=== PATIENT | female | born 1930 | race Caucasian/White ===

== ENCOUNTER 2018-05-05 13:24 | Inpatient (IN) | payer OTHER, BC, MEDICARE ==
[~2018-05-05] VITALS: Ht 157.5 cm; Wt 66.3 kg
--- NOTE | 2018-05-05 13:53 | ED SYNCOPE COMPLAINT ---
History of Present Illness General Chief Complaint: Syncope and Near-Syncope Stated Complaint: S/P SYNCOPAL EPISODE Source: patient, EMS Exam Limitations: no limitations Allergies Coded Allergies: NSAIDS (Non-Steroidal Anti-Inflamma (BLEEDING 05/05/18) blueberry (TONGUE AND LIP SWELL; ALL BERRIES EXCEPT STRAWBERRY 05/05/18) raspberry (LIP AND TONGUE SWELL; ALL BERRIES EXCEPT STRAWBERRY 05/05/18) Triage Note: PT BIBA S/P SYNCOPAL EPISODE AT [facility] LOC ESTIMATED TO HAVE LASTED LESS THAN A MINUTE. PT HIT BACK OF HER HEAD. ARRIVED WITH C-COLLAR IN PLACE. PT ALSO IN RAPID AFIB ON EMS ARRIVAL. SHE HAS NO HISTORY OF AFIB. NOT ON ANTICOAGULANTS. AFIB ON ARRIVAL HR 110s-120s. DENIES CP OR PALPITATIONS. NO C/O SOB. Triage Nurses Notes Reviewed? yes Timing: recent history Precipitating Factors: none Context: standing HPI: 87YO female with hx of HTN, hyperlipidema presents to ED complaining of syncopal episode while shopping today. Patient states she fell backwards and hit her head. She was unconcious for about 1 minute. PAtient states she has no prodrome symptoms prior to her syncopal episode. She reports decreased appetite and fatigue over the past few days. She has no history of syncope in the past. The patient denies fevers, chills, chest pain, dyspnea, palpatations, abdominal pain. (Ester MACIEL,Mindy Cervantes) Vital Signs & Intake/Output Vital Signs & Intake/Output Vital Signs Date Time Temp Pulse Resp B/P B/P Pulse O2 O2 Flow FiO2 Mean Ox Delivery Rate 05/05 1648 97.8 108 18 160/84 98 Room Air 05/05 1517 98.0 109 18 144/84 95 Room Air 05/05 1336 98.5 126 18 155/93 98 Room Air Reconcile Medications Acetaminophen 500 MG TABLET 2 TAB PO PRN PAIN (Reported) Amlodipine Besylate 10 MG TABLET 1 TAB PO DAILY BP (Reported) Atorvastatin Calcium (Lipitor) 10 MG TABLET 1 TAB PO DAILY CHOLESTEROL ( Reported) Chlorthalidone 25 MG TABLET 1 TAB PO DAILY DIURETIC (Reported) Citalopram Hydrobromide (Celexa) 20 MG TABLET 1 TAB PO DAILY MENTAL HEALTH ( Reported) Gabapentin (Neurontin) 100 MG CAPSULE 2 CAP PO BID NERVE PAIN (Reported) Verapamil HCl 120 MG TABLET 1 TAB PO DAILY HEART/BP (Reported) (Parker CORTES,Jean Claude Resendez) Past History Travel History Traveled to [place] past 21 day No Medical History Any Pertinent Medical History? see below for history Cardiovascular: hypertension, hyperlipidemia Surgical History Surgical History: non-contributory Psychosocial History What is your primary language Guamanian Tobacco Use: Never used Family History Hx Contributory? No (Mindy Jarvis) Review of Systems Review of Systems Constitutional: Reports: no symptoms. EENTM: Reports: no symptoms. Respiratory: Reports: no symptoms. Cardiovascular: Reports: see HPI. GI: Reports: no symptoms. Genitourinary: Reports: no symptoms. Musculoskeletal: Reports: no symptoms. Skin: Reports: no symptoms. Neurological/Psychological: Reports: see HPI. All Other Systems: Reviewed and Negative (Mindy Jarvis) Physical Exam Physical Exam General Appearance: well developed/nourished, no apparent distress, alert, awake Head: atraumatic, normal appearance Eyes: Bilateral: normal appearance, PERRL, EOMI. Ears, Nose, Throat: normal pharynx, hearing grossly normal Neck: normal inspection, supple, full range of motion, no midline tenderness Respiratory: normal breath sounds, chest non-tender, no respiratory distress, lungs clear Cardiovascular: normal peripheral pulses, tachycardia, irregular rhythm Gastrointestinal: normal bowel sounds, soft, non-tender, no organomegaly Back: normal inspection, normal range of motion, no vertebral tenderness Extremities: normal range of motion, [id number] skin abrasion to posterior right forearm Psychiatric: awake, alert, oriented x 3 Cranial Nerves: normal hearing, normal speech, PERRL, CN II-XII intact Coordination/Gait: normal gait Motor/Sensory: no motor/sensory deficits Skin: abrasion as mentioned above Core Measures ACS in differential dx? Yes CVA/TIA Diagnosis: No Sepsis Present: No Sepsis Focused Exam Completed? No (Mindy Jarvis) Progress Differential Diagnosis: AMI, aortic valve, drug induced syncope, orthostatic syncope, other valvular disease, pulmonary embolus, subarachnoid hem., TIA/CVA, ventricular tach/fib, ATIAL FIBRILLATION, DEHYDRATION, CHF Plan of Care: Orders Procedure Date/time Status Heart Healthy Diet 05/06 B Active Patient Data 05/05 1705 Active TROPONIN LEVEL 05/05 1705 Active EKG 05/05 1705 Active ED Holding Orders 05/05 1659 Active Admit to inpatient 05/05 1659 Active Vital Signs 05/05 1659 Active Code Status 05/05 1659 Active Add-on Test (ER Only) 05/05 1542 Active B-TYPE NATRIURETIC PEP (BNP) 05/05 1405 Complete TROPONIN LEVEL 05/05 1349 Complete PARTIAL THROMBOPLASTIN TIME 05/05 1349 Complete PROTHROMBIN TIME 05/05 1349 Complete COMPREHENSIVE METABOLIC PANEL 05/05 1349 Complete CBC WITHOUT DIFFERENTIAL 05/05 1349 Complete Intake & Output 05/05 1341 Active EKG 05/05 1330 Active Current Medications Sig/Miracle Start time Last Medication Dose Stop Time Status Admin Heparin Sodium 25,000 UNIT Q24H 05/05 1715 AC (Porcine) (Heparin) Sodium Chloride 500 ML Sodium Chloride 1,000 ML BOLUS ONE 05/05 1645 AC (Normal Saline 0.9%) 05/05 1744 Sodium Chloride 1,000 ML BOLUS ONE 05/05 1645 AC (Normal Saline 0.9%) 05/05 1844 Laboratory Tests 05/05/18 1710: Troponin I Pending 05/05/18 1405: Anion Gap 12, Estimated GFR 42 L, BUN/Creatinine Ratio 31.7 H, Glucose 109 H, Calcium 9.2, Total Bilirubin 1.1, AST 24, ALT 30, Alkaline Phosphatase 88, Troponin I 0.02, Kos-X-Lzvscfunhma Pept 1620 H, Total Protein 6.9, Albumin 4.1, Globulin 2.8, Albumin/Globulin Ratio 1.5, PT 10.8, INR 0.99, APTT 25, CBC w Diff NO MAN DIFF REQ, RBC 5.06, MCV 87.1, MCH 29.0, MCHC 33.3, RDW 13.9, MPV 8.6, Gran % 64.8, Lymphocytes % 19.4 L, Monocytes % 11.9 H, Eosinophils % 2.7, Basophils % 1.2, Absolute Granulocytes 4.2, Absolute Lymphocytes 1.3, Absolute Monocytes 0.8 H, Absolute Eosinophils 0.2, Absolute Basophils 0.1 Patient receiving IV fluids for possible dehydration given her tachycardia. Syncopal episode did not have prodromal symptoms. CT is WNL. CXR shows possible mild interstitial edema. EKG shows atrial fibrillation, patient has no hx of a fib in the past. Dr. Canales present to see and evaluate the patient. Will initiate IV cardizem and heparin. Spoke with case management, full admission. Patient with new onset atrial fibrillation requiring presentation, rate control, cardiology consult, telemetry monitoring, repeat EKGs and troponins, slow fluid rehydration for dehydration, it is unlikely she will fully recooperate within [address] Canales spoke with Dr. Corona regarding telemetry admission. Diagnostic Imaging: Viewed by Me: CT Scan. Discussed w/RAD: CT Scan. Radiology Impression: PATIENT: EMMANUELLE BENAVIDEZ PRESENT AGE: 87 PATIENT ACCOUNT NO: [id number] : [birth year] LOCATION: [facility] ORDERING PHYSICIAN: Mindy MACIEL SERVICE DATE: 05/05/18 EXAM TYPE: CAT - CT CERV SPINE WO IV CONTRAST; CT HEAD WO IV CONTRAST EXAMINATION: HEAD CT WITHOUT CONTRAST CERVICAL SPINE CT WITHOUT CONTRAST CLINICAL INFORMATION: Syncopal episode today. COMPARISON: None. TECHNIQUE: Contiguous axial imaging of the head was performed without the administration of IV contrast. Axial multidetector volumetric images were also performed through the cervical spine without contrast. Multiplanar reconstructed images in coronal and sagittal orientations were submitted. DOSE: 880.56 mGy-cm FINDINGS: HEAD: No acute intracranial trauma. There is age-appropriate generalized parenchymal atrophy of the brain with proportionate dilation of the ventricles, sulci, and basilar cisterns. A few scattered areas of hypodensity within the periventricular and subcortical white matter are most consistent with sequela of chronic microvascular ischemia in this age group. There are intracranial atherosclerotic calcifications. There is no evidence of acute intracranial hemorrhage or territorial infarction. No abnormal mass-effect or midline shift. No extra-axial fluid collections. Marie to white matter differentiation is well preserved. No hydrocephalus. The soft tissues and osseous structures are normal. Minimal nonobstructive mucosal thickening of a few paranasal sinuses. No obstructive sinus disease. The mastoid air cells are clear. Minimal soft tissue density in the bilateral external auditory canals most likely represents cerumen. CERVICAL SPINE: Multilevel, multifactorial degenerative changes of the cervical spine. Mild straightening of the cervical spine is likely degenerative. No fracture or traumatic subluxation. Vertebral body heights are maintained. There is disc space narrowing scattered throughout the cervical spine, most severe C4-5 and C5 -6 where there is complete loss of disc height. Small endplate osteophytes are noted at several levels. There are varying degrees of ybcu-lf-[id number] facet arthropathy bilaterally. The spinal canal appears patent without significant stenosis. No significant paravertebral soft tissue swelling. Cervical soft tissues are unremarkable. Imaged portions of the lung apices are clear. IMPRESSION: No acute traumatic injury of the head or cervical spine. Age- appropriate generalized parenchymal atrophy of the brain with intracranial atherosclerotic disease and white matter changes most consistent with sequela of chronic microvascular ischemia. Degenerative changes of the cervical spine as detailed above. DICTATED BY: Adriel Gomez MD DATE/TIME DICTATED:05/05/181505 TURN MACHINE OPERATOR:BROWER DATE/TIME TRANSCRIBED:05/05/181505 CONFIDENTIAL, DO NOT COPY WITHOUT APPROPRIATE AUTHORIZATION. <Electronically signed in Other Vendor System> SIGNED BY: Adriel Gomez MD 05/05/181515 CXR Impression: PATIENT: EMMANUELLE BENAVIDEZ PRESENT AGE: 87 PATIENT ACCOUNT NO: [id number] : [birth year] LOCATION: [facility] ORDERING PHYSICIAN: Mindy MACIEL SERVICE DATE: 05/05/181403 EXAM TYPE: RAD - XRY-CHEST XRAY, TWO VIEWS EXAMINATION: XR CHEST CLINICAL INFORMATION: Syncopal episode. COMPARISON: None TECHNIQUE: 2 views of the chest were obtained. FINDINGS: The lungs are well expanded. There is mild bronchovascular prominence bilaterally. Subtle right basilar patchy opacification is nonspecific. No pneumothorax. No large pleural effusion. Top normal to borderline prominent cardiac contour. Aortic atherosclerotic calcification. Question small hiatal hernia. No acute osseous abnormality. IMPRESSION: 1. Nonspecific mild bronchovascular prominence could reflect a mild degree of interstitial edema in the correct clinical setting. 2. Mild patchy right basilar opacification, consider atelectasis or other subtle consolidation. 3. Nonacute findings as above. DICTATED BY: Gee Chicas MD DATE/TIME DICTATED:05/05/181513 TURN MACHINE OPERATOR:BROWER DATE/ TIME TRANSCRIBED:05/05/181513 CONFIDENTIAL, DO NOT COPY WITHOUT APPROPRIATE AUTHORIZATION. <Electronically signed in Other Vendor System> SIGNED BY: Gee Chicas MD 05/05/18 9594 Initial ED EKG: AFIB WITH RVR AND NSSTT CHANGES, RATE 124BPM (Mindy Jarvis) Initial ED EKG: AFIB WITH RVR AND NSSTT CHANGES Rhythm Strip: atrial fibrillation (Jean Claude Canales MD) Departure Departure Clinical Impression Primary Impression: Atrial fibrillation with RVR Secondary Impressions: Abrasion Dehydration Syncope Qualifiers: Syncope type: unspecified Qualified Code: R55 - Syncope and collapse Referrals: Ryan Plascencia MD (PCP/Family) Admission Note Documentation of Exam: Documentation of any treatments & extenuating circumstances including Concerns Regarding Discharge (functional status, medication knowledge or non-compliance, living conditions, etc.) that warrant an admission rather than observation: [ slow IV fluid rehydration] (Mindy Jarvis) Departure Disposition: STILL A PATIENT Condition: Guarded Departure Forms: Customer Survey General Discharge Information Admission Note Spoke With: Flory Corona MD Documentation of Exam: Documentation of any treatments & extenuating circumstances including Concerns Regarding Discharge (functional status, medication knowledge or non-compliance, living conditions, etc.) that warrant an admission rather than observation: [ Admit to telemetry, rate control, anticoagulation, serial enzymes, cardiology consultation] PA/OTOLARYNGOLOGY NURSE Co-Sign Statement Statement: ED Attending supervision documentation- [X] I saw and evaluated the patient. I have also reviewed all the pertinent lab results and diagnostic results. I agree with the findings and the plan of care as documented in the PA's/OTOLARYNGOLOGY NURSE's documentation. [X] I have reviewed the ED Record and agree with the PA's/OTOLARYNGOLOGY NURSE's documentation. [] Additions or exceptions (if any) to the PAs/OTOLARYNGOLOGY NURSE's note and plan are summarized below: [Admit to telemetry for syncope with no prodromal symptoms and new onset A. fib with RVR.] (Jean Claude Canales MD) Critical Care Note Critical Care Note Critical Care Time: 30-74 min (Mindy Jarvis) [X] I have reviewed the ED Record and agree with the PA's/OTOLARYNGOLOGY NURSE's documentation. [] Additions or exceptions (if any) to the PAs/OTOLARYNGOLOGY NURSE's note and plan are summarized below: [Admit to telemetry for syncope with no prodromal symptoms and new onset A. fib with RVR.] (Jean Claude Canales MD) Critical Care Note Critical Care Note Critical Care Time: 30-74 min (Ester MACIEL,Mindy Cervantes)
[2018-05-05 14:34] LABS: ABSOLUTE BASOPHIL COUNT 0.1 /CUMM (0.0-0.2); ABSOLUTE EOSINOPHIL COUNT 0.2 /CUMM (0.0-0.7); ABSOLUTE GRANULOCYTE CT 4.2 /CUMM (1.4-6.5); ABSOLUTE LYMPH COUNT 1.3 /CUMM (1.2-3.4); ABSOLUTE MONOCYTE COUNT 0.8 /CUMM (0.10-0.60); BASOPHIL % 1.2 % (0.0-2.0); EOSINOPHIL % 2.7 % (0-5); GRANULOCYTE % 64.8 % (42.2-75.2); MEAN CORPUSCULAR HGB CONC 33.3 G/DL (33.0-37.0); MEAN CORPUSCULAR VOLUME 87.1 FL (81.0-99.0); MEAN PLATELET VOLUME 8.6 FL (7.4-10.4); PLATELET COUNT 228 /CUMM (130-400); RBC DISTRIBUTION WIDTH 13.9 % (11.5-14.5); RED BLOOD CELL CT 5.06 /CUMM (4.20-5.40); WHITE BLOOD CELL COUNT 6.5 /CUMM (4.8-10.8)
[2018-05-05 14:51] LABS: PT 10.8 SEC (9.4-12.5); PTT 25 SEC (25-37)
--- NOTE | 2018-05-05 15:16 | CT SCAN REPORT ---
EXAMINATION: HEAD CT WITHOUT CONTRAST CERVICAL SPINE CT WITHOUT CONTRAST CLINICAL INFORMATION: Syncopal episode today. COMPARISON: None. TECHNIQUE: Contiguous axial imaging of the head was performed without the administration of IV contrast. Axial multidetector volumetric images were also performed through the cervical spine without contrast. Multiplanar reconstructed images in coronal and sagittal orientations were submitted. DOSE: 880.56 mGy-cm FINDINGS: HEAD: No acute intracranial trauma. There is age-appropriate generalized parenchymal atrophy of the brain with proportionate dilation of the ventricles, sulci, and basilar cisterns. A few scattered areas of hypodensity within the periventricular and subcortical white matter are most consistent with sequela of chronic microvascular ischemia in this age group. There are intracranial atherosclerotic calcifications. There is no evidence of acute intracranial hemorrhage or territorial infarction. No abnormal mass-effect or midline shift. No extra-axial fluid collections. Marie to white matter differentiation is well preserved. No hydrocephalus. The soft tissues and osseous structures are normal. Minimal nonobstructive mucosal thickening of a few paranasal sinuses. No obstructive sinus disease. The mastoid air cells are clear. Minimal soft tissue density in the bilateral external auditory canals most likely represents cerumen. CERVICAL SPINE: Multilevel, multifactorial degenerative changes of the cervical spine. Mild straightening of the cervical spine is likely degenerative. No fracture or traumatic subluxation. Vertebral body heights are maintained. There is disc space narrowing scattered throughout the cervical spine, most severe C4-5 and C5-6 where there is complete loss of disc height. Small endplate osteophytes are noted at several levels. There are varying degrees of epug-qz-fqrafesj facet arthropathy bilaterally. The spinal canal appears patent without significant stenosis. No significant paravertebral soft tissue swelling. Cervical soft tissues are unremarkable. Imaged portions of the lung apices are clear. IMPRESSION: No acute traumatic injury of the head or cervical spine. Age-appropriate generalized parenchymal atrophy of the brain with intracranial atherosclerotic disease and white matter changes most consistent with sequela of chronic microvascular ischemia. Degenerative changes of the cervical spine as detailed above.
--- NOTE | 2018-05-05 15:29 | RADIOLOGY REPORT ---
EXAMINATION: XR CHEST CLINICAL INFORMATION: Syncopal episode. COMPARISON: None TECHNIQUE: 2 views of the chest were obtained. FINDINGS: The lungs are well expanded. There is mild bronchovascular prominence bilaterally. Subtle right basilar patchy opacification is nonspecific. No pneumothorax. No large pleural effusion. Top normal to borderline prominent cardiac contour. Aortic atherosclerotic calcification. Question small hiatal hernia. No acute osseous abnormality. IMPRESSION: 1. Nonspecific mild bronchovascular prominence could reflect a mild degree of interstitial edema in the correct clinical setting. 2. Mild patchy right basilar opacification, consider atelectasis or other subtle consolidation. 3. Nonacute findings as above.
[2018-05-05] MEDS ORDERED: LIPITOR10 M1 PO (17:11)
[2018-05-05] MEDS ORDERED: CELEXA20 M1 PO (17:12)
[2018-05-05] MEDS ORDERED: AMLODIPINE BESY10 M1 PO (17:12)
[2018-05-05] MEDS ORDERED: VERAPAMIL HCL120 M3 PO (17:12)
[2018-05-05] MEDS ORDERED: CHLORTHALIDONE25 M1 PO (17:13)
[2018-05-05] MEDS ORDERED: NEURONTIN100 M1 PO (17:20)
[2018-05-05] MEDS ORDERED: ACETAMINOPHEN500 M4 PO (17:20)
--- NOTE | 2018-05-05 17:57 | PN- Att Addend ---
Attending Addendum Attending Brief Note Patient is a pleasant 87-year-old female with history of spinal stenosis, osteoarthritis, hypertension, dyslipidemia who presents to the emergency room after syncope episode while shopping. She reports pain in the usual state of health and approaching the giron register when she suddenly lost consciousness. Denies any prodromal symptoms. Denies any incontinence or tongue biting. Denies any similar episodes in the past. She spontaneously came to EMS was called and she was brought to the emergency room for evaluation. She arrived here hemodynamically stable. She is currently alert and oriented [address] shows no acute intracranial pathology. Laboratory data are within normal limits other than elevated BUN and creatinine. We have no baseline for comparison here. Patient denies any knowledge of pre- existing renal disease. EKG shows normal sinus rhythm with no ischemic changes. She was referred to inpatient medical service for further evaluation and management. General appearance: Well-developed and not in any acute distress. HEENT: Anicteric, no pallor, pupils equal and reactive. Neck: Supple with no jugular venous distention. Heart: S1-S2 regular with no audible murmur. Lungs: Adequate and symmetric air entry bilaterally with no added sounds. Abdomen: Nondistended with normal bowel sounds. Soft, nontender with no palpable masses. Extremities: No pedal edema. No cyanosis. Skin: Small skin tear right upper extremity. Problems: 1. Syncope Plan: -Admit to the inpatient medical service. -Telemetry monitoring. Trend cardiac enzymes. Obtain echocardiogram. -Check orthostatic vitals. -BUN/creatinine was elevated in the ER. We have no baseline labs for comparison. She did receive IV fluids in the ER. Recommend holding her oral diuretic for today. Repeat serum chemistry in a.m. Obtain labs from primary care provider for comparison.
[2018-05-05 19:01] VITALS: BP 144/90
--- NOTE | 2018-05-05 19:04 | History & Physical ---
See Addendum General Information and HPI MD Statement: I have seen and personally examined EMMANUELLE AGUSTIN and documented this H&P. The patient is a 87 year old F who presented with a patient stated chief complaint of [syncopal attack]. Source of Information: patient, family Exam Limitations: no limitations History of Present Illness: Ms. 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 Patient reported feeling off balance this morning however no falls, denied any dizziness, lightheadedness, blurry vision, diaphoresis, chest pain or palpitation. 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 Denied weakness or numbness. No prodromal symptoms. No previous falls. Patient at baseline very active, lives by herself, use cane or occasionally when she is outside. Denied any sick contact. Patient reported poor fluid intake over the last couple of days however denied any nausea, vomiting, diarrhea, bleeding from any orifices. Allergies/Medications Allergies: Coded Allergies: NSAIDS (Non-Steroidal Anti-Inflamma (BLEEDING 05/05/18) blueberry (TONGUE AND LIP SWELL; ALL BERRIES EXCEPT STRAWBERRY 05/05/18) raspberry (LIP AND TONGUE SWELL; ALL BERRIES EXCEPT STRAWBERRY 05/05/18) Home Med list Acetaminophen 500 MG TABLET 2 TAB PO PRN PAIN (Reported) Amlodipine Besylate 10 MG TABLET 1 TAB PO DAILY BP (Reported) Atorvastatin Calcium (Lipitor) 10 MG TABLET 1 TAB PO DAILY CHOLESTEROL ( Reported) Chlorthalidone 25 MG TABLET 1 TAB PO DAILY DIURETIC (Reported) Citalopram Hydrobromide (Celexa) 20 MG TABLET 1 TAB PO DAILY MENTAL HEALTH ( Reported) Gabapentin (Neurontin) 100 MG CAPSULE 2 CAP PO BID NERVE PAIN (Reported) Verapamil HCl 120 MG TABLET 1 TAB PO DAILY HEART/BP (Reported) Past History Travel History Traveled to [place] past 21 day No Medical History EENT: cataracts Cardiovascular: hyperlipidemia, HTN;vena cava filter Respiratory: pulmonary embolism Gastrointestinal: hiatal hernia Hepatic: NONE Renal: NONE Musculoskeletal: spinal stenosis Psychiatric: depression Endocrine: NONE Blood Disorders: NONE Cancer(s): NONE 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 Home Smoking Status: Never Smoked Review of Systems Review of Systems Constitutional: Denies: see HPI, chills, fever, malaise, weakness. EENTM: Denies: blurred vision, double vision, ear redness. Cardiovascular: Denies: chest pain, orthopena, palpitations. Respiratory: Denies: cough, hemoptysis, short of breath. GI: Denies: abdominal pain, nausea, vomiting. Genitourinary: Denies: frequency, hematuria, hesitation. Musculoskeletal: Denies: back pain, joint pain. Skin: Denies: moles, rash. Neurological/Psychological: Denies: depressed, dementia, headache, numbness, tremors. Exam & Diagnostic Data Last 24 Hrs of Vital Signs/I&O Vital Signs Date Time Temp Pulse Resp B/P B/P Pulse O2 O2 Flow FiO2 Mean Ox Delivery Rate 05/05 1901 98.8 102 22 144/90 96 05/05 1833 Room Air 05/05 1821 97.8 108 18 160/84 05/05 1648 97.8 108 18 160/84 98 Room Air 05/05 1517 98.0 109 18 144/84 95 Room Air 05/05 1336 98.5 126 18 155/93 98 Room Air Intake & Output 05/05 1600 05/05 0800 05/05 0000 Intake Total 0 Output Total Balance 0 Intake, Oral 0 Patient 65.771 kg Weight Weight Reported by Patient Measurement Method Physical Exam General Appearance Alert, Oriented X3, Cooperative, No Acute Distress Skin No Rashes, No Breakdown, No Significant Lesion Skin Temp/Moisture Exam: Warm/Dry HEENT Atraumatic, PERRLA, EOMI, Mucous Membr. moist/pink Neck Supple Cardiovascular Regular Rate, Normal S1, Normal S2, No Murmurs Lungs Clear to Auscultation, Normal Air Movement Abdomen Normal Bowel Sounds, Soft, No Tenderness Neurological Normal Speech, Strength at 5/5 X4 Ext, Normal Tone, Sensation Intact, Cranial Nerves 3-12 NL, Reflexes 2+ Extremities No Clubbing, No Cyanosis, No Edema, Normal Pulses, No Tenderness/ Swelling, right arm skin abrasion Last 24 Hrs of Labs/Franky: Laboratory Tests 05/05/18 1710: Phosphorus 3.7, Magnesium 1.9, Troponin I 0.02, TSH 1.000 05/05/18 1405: Anion Gap 12, Estimated GFR 42 L, BUN/Creatinine Ratio 31.7 H, Glucose 109 H, Calcium 9.2, Total Bilirubin 1.1, AST 24, ALT 30, Alkaline Phosphatase 88, Troponin I 0.02, [id number] Pept 1620 H, Total Protein 6.9, Albumin 4.1, Globulin 2.8, Albumin/Globulin Ratio 1.5, PT 10.8, INR 0.99, APTT 25, CBC w Diff NO MAN DIFF REQ, RBC 5.06, MCV 87.1, MCH 29.0, MCHC 33.3, RDW 13.9, MPV 8.6, Gran % 64.8, Lymphocytes % 19.4 L, Monocytes % 11.9 H, Eosinophils % 2.7, Basophils % 1.2, Absolute Granulocytes 4.2, Absolute Lymphocytes 1.3, Absolute Monocytes 0.8 H, Absolute Eosinophils 0.2, Absolute Basophils 0.1 Assessment/Plan Assessment: Ms. Agustin is 87 year old female with past medical history significant for hypertension, hyperlipidemia, chronic leg pain, DVT and PE 2007 status post IVC filter with no anticoagulation, hematoma developed with subcutaneous DVT prophylaxis in the past who presented to ED after a syncopal attack. Patient mostly have physical attack due to dehydration. Her blood work shows BUN/creatinine of 38/1.2 with baseline creatinine unknown however patient denied any kidney disease. Her EKG showed sinus tachycardia, EKG reviewed with photo specialist Dr. Tracy and there is no signs for atrial fibrillation. Patient received diltiazem push in ED for heart rate of 1:30 that was symptomatic. On telemetry floor she has pain around 104-105 bpm. Problem list Syncopal attack mostly vasovagal due to dehydration Acute kidney injury Plan Admit to telemetry floor Vitals every shift Orthostatic hypotension IV fluid patient's status 2 L bolus Obtain TSH, magnesium and phosphorus Echocardiogram Continue home medication, hold gabapentin for today Lidocaine for right leg pain Code DNR/DNI Diet heart healthy DVT prophylaxis Alps. Patient refused subcutaneous DVT prophylaxis because of previous history of hematoma As Ranked By This Provider Problem List: 1. Syncope Qualifiers Syncope type: unspecified Qualified Code: R55 - Syncope and collapse 2. Dehydration 3. Abrasion Core Measures/Misc (08/13) Acute Coronary Syndrome ACS Diagnosis: No Congestive Heart Failure Congestive Heart Failure Diagnosis No Cerebrovascular Accident CVA/TIA Diagnosis: No VTE (View Protocol) VTE Risk Factors Age>40 No Mechanical VTE Prophylaxis d/t N/A MechProphylax Ordered No VTE Pharm Prophylaxis d/t Other Comment: patient refused Sepsis (View protocol) Sepsis Present: No If YES complete Sepsis Event Note If YES complete Sepsis Event Note
--- NOTE | 2018-05-05 21:16 | Event Note ---
Event Note Event Note: Patient refused pharmacological DVT prophylaxis because of past medical history of hematoma. I went through the risk and benefit from the DVT prophylaxis. Will order Alps and patient was instructed to stay active and move around.
[2018-05-05 22:27] VITALS: BP 130/78
[2018-05-06 06:55] VITALS: BP 136/80
[2018-05-06 08:15] VITALS: BP 152/90
--- NOTE | 2018-05-06 08:53 | PN- Att Addend ---
Attending Addendum Attending Brief Note Patient seen and examined. No issues overnight reported by nursing staff. Remains afebrile and hemodynamically stable. Resting comfortably and not in any acute distress. No events on telemetry overnight. She reports some improvement of her left knee discomfort after initiation of Lidoderm patch yesterday. Vital Signs Date Time Temp Pulse Resp B/P B/P Pulse O2 O2 Flow FiO2 Mean Ox Delivery Rate 05/06 0815 94 18 152/90 94 Room Air 05/06 0655 98.3 93 22 136/80 95 / 2227 98.6 98 21 130/78 93 / 1901 98.8 102 22 144/90 96 / 1833 Room Air 05/05 1821 97.8 108 18 160/84 05/05 1648 97.8 108 18 160/84 98 Room Air 05/05 1517 98.0 109 18 144/84 95 Room Air 05/05 1336 98.5 126 18 155/93 98 Room Air General appearance: Well-developed and not in any acute distress. HEENT: Anicteric, no pallor, pupils equal and reactive. Neck: Supple with no jugular venous distention. Heart: S1-S2 regular with no audible murmur. Lungs: Adequate and symmetric air entry bilaterally with no added sounds. Abdomen: Nondistended with normal bowel sounds. Soft, nontender with no palpable masses. Extremities: No pedal edema. No cyanosis. Skin: Intact dressing right forearm. Laboratory Tests 05/06/18 0650: Anion Gap 10, Estimated GFR 47 L, BUN/Creatinine Ratio 24.5 05/05/18 2300: Troponin I 0.03, Urine Color STRAW, Urine Clarity CLEAR, Urine pH 6.0, Ur Specific [place] 1.020, Urine Protein NEG, Urine Ketones TRACE H, Urine Nitrite NEG, Urine Bilirubin NEG, Urine Urobilinogen 0.2, Ur Leukocyte Esterase NEG, Ur Microscopic EXAM NOT REQUIRED, Urine Hemoglobin NEG, Urine Glucose NEG 05/05/18 1710: Phosphorus 3.7, Magnesium 1.9, Troponin I 0.02, TSH 1.000 05/05/18 1405: Anion Gap 12, Estimated GFR 42 L, BUN/Creatinine Ratio 31.7 H, Glucose 109 H, Calcium 9.2, Total Bilirubin 1.1, AST 24, ALT 30, Alkaline Phosphatase 88, Troponin I 0.02, [id number]-Tyibpejusfk Pept 1620 H, Total Protein 6.9, Albumin 4.1, Globulin 2.8, Albumin/Globulin Ratio 1.5, PT 10.8, INR 0.99, APTT 25, CBC w Diff NO MAN DIFF REQ, RBC 5.06, MCV 87.1, MCH 29.0, MCHC 33.3, RDW 13.9, MPV 8.6, Gran % 64.8, Lymphocytes % 19.4 L, Monocytes % 11.9 H, Eosinophils % 2.7, Basophils % 1.2, Absolute Granulocytes 4.2, Absolute Lymphocytes 1.3, Absolute Monocytes 0.8 H, Absolute Eosinophils 0.2, Absolute Basophils 0.1 Problems: 1. Syncope 2. Hypertension 3. History of DVT/PE. Status post IVC filter placement. 4. Elevated creatinine; unknown baseline. Plan: -Continue telemetry monitoring. If no further events we anticipate discharge home tomorrow. Patient may benefit from Holter monitoring in the outpatient setting. Please follow-up with the cardiology service regarding this. -Echocardiogram scheduled for today. -Creatinine level not significantly improved from yesterday. No baseline for comparison here. Repeat serum chemistry in a.m. Follow-up with primary care provider tomorrow prior to discharge regarding her baseline renal function. Patient may have been dehydrated which contributed to her syncope. She did receive IV hydration in the emergency room. Continue to hold her diuretic for now. Addendum. 11:30 AM. desk monitor reviewed. Patient went into atrial fibrillation. There was concern initially on presentation yesterday that she was in atrial fibrillation however it appeared more like sinus tachycardia. She has been in normal sinus rhythm overnight. She is not clearly in atrial fibrillation. Her chads 2 vascular score is at least 4 based on her sex, age and history of hypertension. She is at moderate to high risk for cardioembolic events. Patient however was reluctant to start anticoagulation therapy due to history of bleeding in the past. Apparently she was started on Lovenox and Coumadin about 10 years ago for DVT/PE. She did develop significant bruising . This truncated the use of anticoagulant therapy and necessitated the placement of an IVC filter. From her description it is unclear if she had any other significant bleeding. She denies any rectal bleeding. She reports only having routine colonoscopies. After discussing the risk of developing stroke with the patient and her daughter , the patient is now agreeable to start anticoagulation therapy. Will begin excavation therapy with heparin infusion and monitor closely for any bleeding. Recommend evaluation by the cardiology service for discussion regarding consideration of left atrial appendage closure if we are unable to safely provide anticoagulation therapy.
--- NOTE | 2018-05-06 09:50 | PN- Housestaff ---
Subjective Follow-up For: Syncopal attack Tele-Events Since Last Visit: Sinus rhythm with sinus tachycardia at 113 At 930 patient converted to A. fib with rate in 90s on 100 Subjective: Patient was seen and examined this morning, she is lying comfortably in bed, offers no complaint. The right leg pain improved with lidocaine patch. Patient reported feeling better, no off balance, no nausea or vomiting. She denied any chest pain or palpitation. Review of Systems Constitutional: Reports: see HPI. EENTM: Reports: see HPI. Objective Last 24 Hrs of Vital Signs/I&O Vital Signs Date Time Temp Pulse Resp B/P B/P Pulse O2 O2 Flow FiO2 Mean Ox Delivery Rate 05/06 0815 94 18 152/90 94 Room Air 05/06 0655 98.3 93 22 136/80 95 05/05 2227 98.6 98 21 130/78 93 / 1901 98.8 102 22 144/90 96 / 1833 Room Air 05/05 1821 97.8 108 18 160/84 05/05 1648 97.8 108 18 160/84 98 Room Air 05/05 1517 98.0 109 18 144/84 95 Room Air 05/05 1336 98.5 126 18 155/93 98 Room Air Intake & Output 05/06 1600 05/06 0800 06 0000 Intake Total 120 240 Output Total 550 Balance -430 240 Intake, Oral 120 240 Output, Urine 550 Patient 70.335 kg Weight Physical Exam General Appearance: Alert, Oriented X3, Cooperative, No Acute Distress Skin: No Rashes, No Breakdown, No Significant Lesion Skin Temp/Moisture Exam: Warm/Dry HEENT: Atraumatic, PERRLA, EOMI, Mucous Membr. moist/pink Neck: Supple Cardiovascular: Normal S1, Normal S2, No Murmurs, irregular irregular Lungs: Clear to Auscultation, Normal Air Movement Abdomen: Normal Bowel Sounds, Soft, No Tenderness Neurological: Normal Speech, Strength at 5/5 X4 Ext, Normal Tone, Sensation Intact, Cranial Nerves 3-12 NL, Reflexes 2+ Extremities: No Clubbing, No Cyanosis, No Edema, Normal Pulses, No Tenderness/ Swelling Assessment/Plan Assessment: Ms. 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 Patient mostly have physical attack due to dehydration. Her blood work shows BUN/creatinine of 38/1.2 with baseline creatinine unknown however patient denied any kidney disease. Her EKG showed sinus tachycardia, EKG reviewed with cloud infrastructure architect Dr. Tracy and there is no signs for atrial fibrillation. Patient received diltiazem push in ED for heart rate of 1:30 that was symptomatic. On telemetry floor she has pain around 104-105 bpm. Problem list Syncopal attack New onset atrial fibrillation Acute kidney injury Plan -Continue monitoring analyst -Increase verapamil to 180 mg daily for rate control -Anticoagulation. Patient reported having severe hematoma in the abdomen 10 years ago when she was on Lovenox injection and was told not to use anticoagulation. Chads vas2 score is 4 points 4.8% for any thromboembolic events age, sex, HTN. Will obtain records from [facility]. -Patient expressed concern about stroke risk and agreed to start heparin. Will start heparin IV without bolus. Guaiac test: no stool in the rectal vault -Orthostatic measurement pending -Replete potassium and give above 4 -Add on magnesium -Echocardiogram pending -Continue home medication, continue to hold gabapentin -Lidocaine for right leg pain Code DNR/DNI Diet heart healthy DVT prophylaxis Alps. Patient refused subcutaneous DVT prophylaxis because of previous history of hematoma Problem List: 1. Syncope 2. Atrial fibrillation Pain Ratin Pain Location: right leg Pain Goal: Pain 4 or less Pain Plan: lidocine patch Tomorrow's Labs & Rationales: BEP
--- NOTE | 2018-05-06 11:40 | ECHOCARDIOGRAM REPORT ---
EMMANUELLE BENAVIDEZ Age: 87 : 1930 Gender: F Exam Date: 05/06/2018 09:38 Exam Location: 1 [address] Ht (in): 62 Wt (lb): 145 BSA: 1.71 BP: 136 / 80 Ordering Physician: Natasha Perkins MD Referring Physician: Burton Tracy MD Technologist: Masha Russell [facility] Room Number: 189-02 Indications: PRESYNCOPE/SYNCOPE Rhythm: Atrial fibrillation Technical Quality: Fair FINDINGS Left Ventricle Normal size left ventricle. Mild concentric left ventricular hypertrophy. No obvious regional wall motion abnormalities. Normal left ventricular ejection fraction visually estimated at >55%. Right Ventricle Normal right ventricular size and function. Right Atrium Moderate right atrial dilatation. Left Atrium Moderate left atrial dilatation. Mitral Valve Mild mitral annular calcification. Mitral valve mildly thickened. Mild to moderate mitral regurgitation. Aortic Valve Trileaflet aortic valve. Mild aortic sclerosis. No aortic stenosis. Trace aortic regurgitation. Tricuspid Valve Structurally normal tricuspid valve. Mild to moderate tricuspid regurgitation. Severe pulmonary hypertension. Right ventricular systolic pressure estimated to be elevated at 63 mmHg. Pulmonic Valve Pulmonic valve not well visualized, grossly normal. Mild pulmonic regurgitation. Pericardium No pericardial effusion. Great Vessels Normal size aortic root. Normal size inferior vena cava. CONCLUSIONS Normal size left ventricle. Mild concentric left ventricular hypertrophy. Normal left ventricular ejection fraction visually estimated at > 55%. Normal right ventricular size and function. Moderate atrial dilatation. Mild to moderate mitral regurgitation. Trace aortic regurgitation. Mild to moderate tricuspid regurgitation. Severe pulmonary hypertension. Mild pulmonic regurgitation. Burton Tracy M.D. (Electronically Signed) Final Date: 06 May 2018 11:39 MEASUREMENTS (Male / Female) Normal Values 2D ECHO LV Diastolic Diameter PLAX 4.4 cm 4.2 - 5.9 / 3.9 - 5.3 cm LV Systolic Diameter PLAX 2.8 cm 2.1 - 4.0 cm LV Fractional Shortening PLAX 36.4 % 25 - 46 % LV Ejection Fraction 2D Teich 66.3 % IVS Diastolic Thickness 1.2 cm LVPW Diastolic Thickness 1.1 cm LV Relative Wall Thickness 0.5 RV Internal Dim ED PLAX 3.4 cm 1.9 - 3.8 cm LVOT Diameter 2.3 cm Aortic Root Diameter 2.6 cm LA Systolic Diameter LX 4.5 cm 3.0 - 4.0 / 2.7 - 3.8 cm LA Volume 67.0 cm 18 - 58 / 22 - 52 cm Ascending Aorta Diameter 3.3 cm DOPPLER AV Peak Velocity 137.0 cm/s AV Peak Gradient 7.5 mmHg AV Mean Velocity 91.7 cm/s AV Mean Gradient 4.0 mmHg AV Velocity Time Integral 24.8 cm LVOT Peak Velocity 72.2 cm/s LVOT Peak Gradient 2.1 mmHg LVOT Mean Velocity 50.7 cm/s LVOT Mean Gradient 1.0 mmHg LVOT Velocity Time Integral 15.3 cm LVOT Stroke Volume 63.6 cm AV Area Cont Eq vti 2.6 cm AV Area Cont Eq pk 2.2 cm MV Peak Velocity 135.0 cm/s MV Peak Gradient 7.3 mmHg MV Mean Velocity 72.5 cm/s MV Mean Gradient 3.0 mmHg Mitral E Point Velocity 99.2 cm/s MV PHT Velocity 144.0 cm/s MV Deceleration [place] 729.0 cm/s MV Pressure Half Time 59.3 ms MV Area PHT 3.7 cm MV Deceleration Time 137.0 ms TR Peak Velocity 380.0 cm/s TR Peak Gradient 57.8 mmHg Right Atrial Pressure 5.0 mmHg Pulmonary Artery Systolic Pressu 62.8 mmHg Right Ventricular Systolic Press 62.8 mmHg PV Peak Velocity 82.7 cm/s PV Peak Gradient 2.7 mmHg PV Mean Velocity 55.9 cm/s PV Mean Gradient 1.0 mmHg PV Velocity Time Integral 14.5 cm LV E' Lateral Velocity 14.2 cm/s Mitral E to LV E' Lateral Ratio 7.0 LV E' Septal Velocity 8.7 cm/s Mitral E to LV E' Septal Ratio 11.4
[2018-05-06 13:16] VITALS: BP 128/70
[2018-05-06 13:50] VITALS: BP 130/60
--- NOTE | 2018-05-06 18:15 | Cons- Cardiology ---
General Information and HPI Consulting Request Date of Consult: 05/06/18 Requested By: Flory Corona MD Reason for Consult: "New onset" atrial fibrillation. Source of Information: patient, old records Exam Limitations: poor historian History of Present Illness: Mrs. 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 She has chronic left lower extremity discomfort and was experiencing this when at the checkout counter after shopping and lifted her left leg for a few seconds and then reports "coming to" and being aware of her surroundings and answering questions appropriately. She denied head strike or incontinence, but she did sustain a right arm laceration. There were no reports of seizure-like activity. She denies any prodromal symptoms or any post syncopal chest discomfort, palpitations, shortness of breath, etc. She does admit to "not feeling herself" since approximately Monday, 2017 and had decreased p.o. intake. Allergies/Medications Allergies: Coded Allergies: NSAIDS (Non-Steroidal Anti-Inflamma (BLEEDING 05/05/18) blueberry (TONGUE AND LIP SWELL; ALL BERRIES EXCEPT STRAWBERRY 05/05/18) raspberry (LIP AND TONGUE SWELL; ALL BERRIES EXCEPT STRAWBERRY 05/05/18) Home Med List: Acetaminophen 500 MG TABLET 2 TAB PO PRN PAIN (Reported) Amlodipine Besylate 10 MG TABLET 1 TAB PO DAILY BP (Reported) Atorvastatin Calcium (Lipitor) 10 MG TABLET 1 TAB PO DAILY CHOLESTEROL ( Reported) Chlorthalidone 25 MG TABLET 1 TAB PO DAILY DIURETIC (Reported) Citalopram Hydrobromide (Celexa) 20 MG TABLET 1 TAB PO DAILY MENTAL HEALTH ( Reported) Gabapentin (Neurontin) 100 MG CAPSULE 2 CAP PO BID NERVE PAIN (Reported) Lidocaine (Lidoderm) 5 % ADH..PATCH 1 PAT EXT Q24H PRN pain Verapamil HCl 120 MG TABLET 1 TAB PO DAILY HEART/BP (Reported) Review of Systems Review of Systems: A 14 point system review was obtained was noncontributory, other than as above. 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 Home Smoking Status: Never Smoked Exam & Diagnostic Data Vital Signs and I&O Vital Signs Date Time Temp Pulse Resp B/P B/P Pulse O2 O2 Flow FiO2 Mean Ox Delivery Rate 05/06 1350 98.2 61 20 130/60 96 05/06 1316 88 18 128/70 96 Room Air 05/06 0815 94 18 152/90 94 Room Air 05/06 0655 98.3 93 22 136/80 95 05/05 2227 98.6 98 21 130/78 93 05/05 1901 98.8 102 22 144/90 96 05/05 1833 Room Air 05/05 1821 97.8 108 18 160/84 Intake & Output 05/06 1600 05/06 0800 05/06 0000 05/05 1600 05/05 0800 05/05 0000 Intake Total 560 120 240 0 Output Total 550 550 Balance 10 -430 240 0 Intake, Oral 560 120 240 0 Number 1 Bowel Movements Output, Urine 550 550 Patient 155 lb 145 lb Weight Weight Reported by Patient Measurement Method Physical Exam: Well-developed, well-nourished elderly female in no acute distress. Vital signs: See above. HEENT: Normocephalic, atraumatic, EOMI, moist mucous membranes. Neck: No JVD, no bruits. Lungs: Clear to auscultation bilaterally. Heart: S1, S2 (irregularly, irregular) with no murmur, gallop, or rub. PMI fifth ICS MCL. Abdomen: Soft, nontender, positive bowel sounds. Extremities: No edema. Labs/Franky Results: Laboratory Tests 05/06 05/05 05/05 0650 2300 1710 Chemistry Sodium (137 - 145 mmol/L) 141 Potassium (3.5 - 5.1 mmol/L) 3.5 Chloride (98 - 107 mmol/L) 106 Carbon Dioxide (22 - 30 mmol/L) 25 Anion Gap (5 - 16) 10 BUN (7 - 17 mg/dL) 27 H Creatinine (0.5 - 1.0 mg/dL) 1.1 H Estimated GFR (>60 ml/min) 47 L BUN/Creatinine Ratio (7 - 25 %) 24.5 Phosphorus (2.5 - 4.5 mg/dL) 3.7 Magnesium (1.6 - 2.3 mg/dL) 1.9 1.9 Troponin I (< 0.11 ng/ml) 0.03 0.02 TSH (0.270 - 4.200 uIU/mL) 1.000 Urines Urine Color (YEL,AMB,STR) STRAW Urine Clarity (CLEAR) CLEAR Urine pH (5.0 - 8.0) 6.0 Ur Specific [place] (1.001 - 1.035) 1.020 Urine Protein (NEG,<30 MG/DL) NEG Urine Ketones (NEG) TRACE H Urine Nitrite (NEG) NEG Urine Bilirubin (NEG) NEG Urine Urobilinogen (0.1 - 1.0 EU/dl) 0.2 Ur Leukocyte Esterase (NEG) NEG Ur Microscopic EXAM NOT REQUIRED Urine Hemoglobin (NEG) NEG Urine Glucose (N MG/DL) NEG 05/05 1405 Chemistry Sodium (137 - 145 mmol/L) 142 Potassium (3.5 - 5.1 mmol/L) 4.1 Chloride (98 - 107 mmol/L) 103 Carbon Dioxide (22 - 30 mmol/L) 27 Anion Gap (5 - 16) 12 BUN (7 - 17 mg/dL) 38 H Creatinine (0.5 - 1.0 mg/dL) 1.2 H Estimated GFR (>60 ml/min) 42 L BUN/Creatinine Ratio (7 - 25 %) 31.7 H Glucose (65 - 99 mg/dL) 109 H Calcium (8.4 - 10.2 mg/dL) 9.2 Total Bilirubin (0.2 - 1.3 mg/dL) 1.1 AST (14 - 36 U/L) 24 ALT (9 - 52 U/L) 30 Alkaline Phosphatase (<127 U/L) 88 Troponin I (< 0.11 ng/ml) 0.02 Pop-[id number]-Xxynmpdueyu Pept (<125 pg/mL) 1620 H Total Protein (6.3 - 8.2 g/dL) 6.9 Albumin (3.5 - 5.0 g/dL) 4.1 Globulin (1.9 - 4.2 gm/dL) 2.8 Albumin/Globulin Ratio (1.1 - 2.2 %) 1.5 Coagulation PT (9.4 - 12.5 SEC) 10.8 INR (0.90 - 1.19) 0.99 APTT (25 - 37 SEC) 25 Hematology CBC w Diff NO MAN DIFF REQ WBC (4.8 - 10.8 /CUMM) 6.5 RBC (4.20 - 5.40 /CUMM) 5.06 Hgb (12.0 - 16.0 G/DL) 14.7 Hct (37 - 47 %) 44.0 MCV (81.0 - 99.0 FL) 87.1 MCH (27.0 - 31.0 PG) 29.0 MCHC (33.0 - 37.0 G/DL) 33.3 RDW (11.5 - 14.5 %) 13.9 Plt Count (130 - 400 /CUMM) 228 MPV (7.4 - 10.4 FL) 8.6 Gran % (42.2 - 75.2 %) 64.8 Lymphocytes % (20.5 - 51.1 %) 19.4 L Monocytes % (1.7 - 9.3 %) 11.9 H Eosinophils % (0 - 5 %) 2.7 Basophils % (0.0 - 2.0 %) 1.2 Absolute Granulocytes (1.4 - 6.5 /CUMM) 4.2 Absolute Lymphocytes (1.2 - 3.4 /CUMM) 1.3 Absolute Monocytes (0.10 - 0.60 /CUMM) 0.8 H Absolute Eosinophils (0.0 - 0.7 /CUMM) 0.2 Absolute Basophils (0.0 - 0.2 /CUMM) 0.1 Diagnostic Data EKG Results 05/06/2018: Atrial fibrillation with a moderate ventricular response, possible PVC, Clay phenomenon and T-wave abnormalities in diffuse leads. CXR Results 05/05/2018: 1. Nonspecific mild bronchovascular prominence could reflect a mild degree of interstitial edema in the correct clinical setting. 2. Mild patchy right basilar opacification, consider atelectasis or other subtle consolidation. 3. Nonacute findings as above. Other Results CT head/cervical spine 05/05/2018: No acute traumatic injury of the head or cervical spine. Age-appropriate generalized parenchymal atrophy of the brain with intracranial atherosclerotic disease and white matter changes most consistent with sequela of chronic microvascular ischemia. Degenerative changes of the cervical spine as detailed above. Echocardiogram 05/05/2018: Normal size left ventricle. Mild concentric left ventricular hypertrophy. Normal left ventricular ejection fraction visually estimated at >55%. Normal right ventricular size and function. Moderate atrial dilatation. Mild to moderate mitral regurgitation. Trace aortic regurgitation. Mild to moderate tricuspid regurgitation. Severe pulmonary hypertension. Mild pulmonic regurgitation. Assessment/Plan Assessment/Plan [id number] w/ hx of HTN, HLD, & prev DVT/PE s/p IVC filter who developed a hematoma on what sounds like combination SQ enoxaparin & warfarin AC who presented to the ED after experiencing a syncopal episode while at a checkout counter while shopping on 05/05/2018 at ~11:30 a.m. & who was discovered to have AF of which she WAs unaware. Mrs. Agustin has a [id number] Score of 7 (female gender =1, age greater than 75 =2, HTN =1, thromboembolism =2, aortic atherosclerosis =1) and an unadjusted stroke rate of 11.2% per year. As such, it would be reasonable to have her on anticoagulation, unless there is an absolute contraindication, which there does not appear to be. Recommendations: * Continue on telemetry. * Place on IV heparin and plan to start on a NOAC such as Eliquis. * To be on the standard dosage of Eliquis (5 mg twice daily) patient must not have 2 or more of the following: Age equal to greater than 80 years, weight less than 60 kg, creatinine equal to or greater than 1.5. If 2 or more of the above are present in the dosage should be reduced to Eliquis 2.5 mg twice daily. Verify Mrs. Agustin's weight, as she is 87 years of age. * The ventricular response to her atrial fibrillation appears adequately controlled and would maintain her on her present regimen for this. * DVT prophylaxis being addressed by the for her AF. * Consider pulmonary consultation for further evaluation and management of her significant pulmonary hypertension. * Check glycosylated hemoglobin A1c, free T4, and replete potassium and magnesium. Further recommendations will follow, Thank you Consult Acknowledgment - Thank you for your consult request.
[2018-05-06 20:02] LABS: PTT 105 SEC (25-37)
[2018-05-06 22:06] VITALS: BP 128/88
[2018-05-07 03:57] LABS: PTT 59 SEC (25-37)
[2018-05-07 07:02] VITALS: BP 122/74
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
[2018-05-07] MEDS ORDERED: LIDODERM1 EACH EXT (11:43)
--- NOTE | 2018-05-07 11:45 | Patient Discharge Instructions ---
See Addendum Discharge Instructions General Discharge Information You were seen/treated for: Syncope Special Instructions: 1please follow-up with your PCP in 1 week discharge 2please follow-up with your card boxer in 1 week of discharge Diet Continue normal diet: No Recommended Diet: Heart Healthy Acute Coronary Syndrome Inclusion Criteria At DC or during hospital stay patient has or had the following: ACS DIAGNOSIS No Discharge Core Measures Meds if any: Prescribed or Continued at Discharge Meds if any: NOT Prescribed or Continued at Discharge Congestive Heart Failure Inclusion Criteria At DC or during hospital stay patient has or had the following: CHF DIAGNOSIS No Discharge Core Measures Meds if any: Prescribed or Continued at Discharge Meds if any: NOT Prescribed or Continued at Discharge Cerebrovascular accident Inclusion Criteria At DC or during hospital stay patient has or had the following: CVA/TIA Diagnosis No Discharge Core Measures Meds if any: Prescribed or Continued at Discharge Meds if any: NOT Prescribed or Continued at Discharge Venous thromboembolism Inclusion Criteria VTE Diagnosis No VTE Type NONE VTE Confirmed by (Test) NONE Discharge Core Measures - Per Current guidelines, there needs to be overlap - treatment for the first 5 days of Warfarin therapy. - If discharged on Warfarin prior to 5 days of - overlap therapy, the patient will need to be - assessed for post discharge needs including - *Post discharge parental anticoagulation - *Warfarin and/or parental anticoagulation education - *Follow up date to check INR post discharge At least 5 days overlap therapy as Inpatient No Meds if any: Prescribed or Continued at Discharge Note: Overlap Therapy is Warfarin and Anticoagulant Meds if any: NOT Prescribed or Continued at Discharge
[2018-05-07 12:24] LABS: PTT 81 SEC (25-37)
[2018-05-07 14:31] VITALS: BP 120/68
--- NOTE | 2018-05-07 17:31 | PN- Cardiology ---
Subjective Subjective: No complaints except for some right arm discomfort. Converted back to sinus rhythm at ~2:00 a.m. today, 05/07/2018. Objective Vital Signs and I&Os Vital Signs Date Time Temp Pulse Resp B/P B/P Pulse O2 O2 Flow FiO2 Mean Ox Delivery Rate 05/07 1431 98.6 86 20 120/68 94 Room Air 05/07 0847 82 128/76 05/07 0702 98.4 76 18 122/74 95 Room Air 05/06 2206 99.3 74 16 128/88 94 Intake & Output 05/07 1600 05/07 0800 05/07 0000 05/06 1600 05/06 0800 05/06 0000 Intake Total 600 243 159.4 560 120 240 Output Total 500 100 550 550 Balance 600 -257 59.4 10 -430 240 Intake, IV 100 123 39.4 Intake, Oral 500 120 120 560 120 240 Number 1 Bowel Movements Output, Urine 500 100 550 550 Patient 145 lb 155 lb 155 lb Weight Weight Bed scale Measurement Method Physical Exam: Well-developed, well-nourished elderly female in no acute distress. Vital signs: See above. HEENT: Normocephalic, atraumatic, EOMI, moist mucous membranes. Neck: No JVD, no bruits. Lungs: Clear to auscultation bilaterally. Heart: S1, S2 (irregularly, irregular) with no murmur, gallop, or rub. PMI fifth ICS MCL. Abdomen: Soft, nontender, positive bowel sounds. Extremities: No edema. Right arm bandaged. Current Medications: Current Medications Sig/Miracle Start time Last Medication Dose Route Stop Time Status Admin Acetaminophen 650 MG Q6P PRN 05/05 1930 AC PO Amlodipine Besylate 10 MG DAILY 05/06 09 AC 05/07 PO 0847 Atorvastatin Calcium 10 MG 1700 05/06 1700 AC 05/06 PO 1636 Citalopram 20 MG DAILY 05/06 09 AC 05/07 Hydrobromide PO 0847 Heparin Sodium 2,814 UNIT BOLUS ONE 05/07 0430 DC 05/07 (Porcine) IV 05/07 043 0441 Heparin Sodium 25,000 UNIT Q24H 05/06 1200 AC 05/07 (Porcine) IV 1428 Sodium Chloride 500 ML Lidocaine 1 PAT Q24H 05/05 193 AC 05/06 EXT 2026 Magnesium Oxide 400 MG ONE ONE 05/07 0600 DC 05/07 PO 05/07 0601 0633 Verapamil HCl 180 MG DAILY 05/07 0900 AC 05/07 PO 0847 Results Last 48 Hrs of Labs/Mics: Laboratory Tests 05/07/18 1040: APTT 81 H 05/07/18 0315: Anion Gap 11, Estimated GFR 47 L, BUN/Creatinine Ratio 22.7, Hemoglobin A1c 5.8 , Free T4 1.38, APTT 59 H 05/06/18 1925: APTT 105 *H 05/06/18 0650: Anion Gap 10, Estimated GFR 47 L, BUN/Creatinine Ratio 24.5, Magnesium 1.9 05/05/18 2300: Troponin I 0.03, Urine Color STRAW, Urine Clarity CLEAR, Urine pH 6.0, Ur Specific [place] 1.020, Urine Protein NEG, Urine Ketones TRACE H, Urine Nitrite NEG, Urine Bilirubin NEG, Urine Urobilinogen 0.2, Ur Leukocyte Esterase NEG, Ur Microscopic EXAM NOT REQUIRED, Urine Hemoglobin NEG, Urine Glucose NEG Assessment/Plan Assessment/Plan 87-y-o-w-f w/ hx of HTN, HLD, & prev DVT/PE s/p IVC filter who developed a hematoma on what sounds like combination SQ enoxaparin & warfarin AC who presented to the ED after experiencing a syncopal episode while at a checkout counter while shopping on 05/05/2018 at ~11:30 a.m. & who was discovered to be in AF of which she was unaware. Mrs. Agustin has a [id number] Score of 7 (female gender =1, age greater than 75 =2, HTN =1, thromboembolism =2, aortic atherosclerosis =1) and an unadjusted stroke rate of 11.2% per year. As such, it would be reasonable to have her on anticoagulation, unless there is an absolute contraindication. She cannot afford to be on a NOAC, so will initiate therapy with warfarin. Give warfarin 7.5 mg this evening and recheck PTT/INR in a.m. DVT prophylaxis being addressed. Continue telemetry? Yes
[2018-05-07 23:06] VITALS: BP 134/74
[2018-05-07 23:29] LABS: PTT 32 SEC (25-37)
[2018-05-08 07:06] VITALS: BP 120/82
[2018-05-08 07:42] LABS: ABSOLUTE BASOPHIL COUNT 0.1 /CUMM (0.0-0.2); ABSOLUTE EOSINOPHIL COUNT 0.3 /CUMM (0.0-0.7); ABSOLUTE GRANULOCYTE CT 2.9 /CUMM (1.4-6.5); ABSOLUTE LYMPH COUNT 1.2 /CUMM (1.2-3.4); ABSOLUTE MONOCYTE COUNT 0.6 /CUMM (0.10-0.60); BASOPHIL % 1.3 % (0.0-2.0); EOSINOPHIL % 5.3 % (0-5); GRANULOCYTE % 57.1 % (42.2-75.2); MEAN CORPUSCULAR HGB 29.5 PG (27.0-31.0); MEAN CORPUSCULAR HGB CONC 33.8 G/DL (33.0-37.0); MEAN CORPUSCULAR VOLUME 87.1 FL (81.0-99.0); MEAN PLATELET VOLUME 8.5 FL (7.4-10.4); PLATELET COUNT 202 /CUMM (130-400); RED BLOOD CELL CT 4.05 /CUMM (4.20-5.40)
[2018-05-08 07:55] LABS: HEMATOCRIT 35.3 % (37-47)
[2018-05-08 08:22] LABS: PTT 42 SEC (25-37)
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
[2018-05-08 13:16] LABS: PTT 32 SEC (25-37)
[2018-05-08 14:00] VITALS: BP 140/68
[2018-05-08 19:15] LABS: PTT > 120 SEC (25-37)
[2018-05-08 22:20] VITALS: BP 142/78
[2018-05-09 03:33] LABS: PTT 68 SEC (25-37)
--- NOTE | 2018-05-09 07:10 | PN- Housestaff ---
Ethan CORTES,Criss 05/09/18 0710: Subjective Follow-up For: Syncopal attack Tele-Events Since Last Visit: Atrial flutter, 66, 0.08, no overnight Subjective: Patient was seen and examined at bedside, complains of mild puffiness under her eyes, denies any chest pain or lightheadedness, her INR was subtherapeutic today , was dosed Coumadin 7.5 Review of Systems Constitutional: Reports: see HPI. Objective Last 24 Hrs of Vital Signs/I&O Vital Signs Date Time Temp Pulse Resp B/P B/P Pulse O2 O2 Flow FiO2 Mean Ox Delivery Rate 05/09 0840 82 138/82 05/09 0840 82 138/82 05/08 2220 98.8 80 12 142/78 95 Room Air Intake & Output 05/09 1600 05/09 0800 05/09 0000 Intake Total Output Total Balance Patient 141 lb Weight Weight Bed scale Measurement Method Physical Exam General Appearance: Alert, Oriented X3, Cooperative, No Acute Distress Cardiovascular: Normal S1, Normal S2, No Murmurs Lungs: Clear to Auscultation Abdomen: Normal Bowel Sounds, Soft, No Tenderness Neurological: Normal Speech, Strength at 5/5 X4 Ext, Normal Tone, Sensation Intact, Cranial Nerves 3-12 NL Extremities: No Clubbing, No Cyanosis, No Edema Assessment/Plan Assessment: Ms. 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 Patient mostly have physical attack due to dehydration. Her blood work shows BUN/creatinine of 38/1.2 with baseline creatinine unknown however patient denied any kidney disease. Her EKG showed sinus tachycardia, EKG reviewed with teacher dancing Dr. Tracy and there is no signs for atrial fibrillation. Patient received diltiazem push in ED for heart rate of 1:30 that was symptomatic. On telemetry floor she has pain around 104-105 bpm. Problem list Syncopal attack New onset atrial fibrillation severe pulmonary hypertension Acute kidney injury Plan -Continue secured entrance monitor -Increase verapamil to 180 mg daily for rate control -Anticoagulation. Patient reported having severe hematoma in the abdomen 10 years ago when she was on Lovenox injection and was told not to use anticoagulation. a [id number] Score of 7 (female gender =1, age greater than 75 =2, HTN =1, thromboembolism =2, aortic atherosclerosis =1) and an unadjusted stroke rate of 11.2% per year . Continue on IV heparin drip, bridging to Coumadin, INR was subtherapeutic today, the patient was given Coumadin 7.5 today Guaiac test: no stool in the rectal vault -Echocardiogram shows normal ejection fraction 55%, mild to moderate mitral regurg, mild concentric left ventricular hypertrophy, - Need to F/U with her panel flow machine operator as an outpatient for severe pulmonary hypertension for further investigation- DIscussed with Dr. Oakes -Continue home medication, continue to hold gabapentin -Lidocaine for right leg pain Follow up on cardiology recommendation Code DNR/DNI Diet heart healthy DVT prophylaxis coumadin Problem List: 1. Atrial fibrillation 2. Syncope Pain Ratin Pain Location: N/A Pain Goal: Remain pain free Pain Plan: [facility] Labs & Rationales: CBC BEP INR Barbara Gutierrez 05/09/18 1328: Attending MD Review Statement Attending Statement Attending MD Statement: examined this patient, discuss w/resident/PA/SPECIAL DELIVERY CLERK, agreed w/resident/PA/SPECIAL DELIVERY CLERK, discussed with family, reviewed EMR data (avail), discussed with nursing, discussed with case mgmt, reviewed images, amended to note Attending Assessment/Plan: Patinet seen/examined bedside. No new complaints, Had epsiode of afib. Echocardiogram with pulmoanry hypertension. Creatinine level elevated baseline as per previous records. Afib: Anticoagulation as per cardiology. INR 1.23 today. MONITOR INR tomorrow and if INR>2.0 then plan for discharge. can give lovenox sc for bridging as outpatient. Needs to follow up with [facility] as outpatient. hypertension controlled h/o dvt/pe s/p IVC filter placement in past CKD stage 2 Anticipte dsicharge in 24-48 hrs.
[2018-05-09 08:11] LABS: ABSOLUTE BASOPHIL COUNT 0.1 /CUMM (0.0-0.2); ABSOLUTE EOSINOPHIL COUNT 0.3 /CUMM (0.0-0.7); ABSOLUTE GRANULOCYTE CT 3.6 /CUMM (1.4-6.5); ABSOLUTE LYMPH COUNT 1.3 /CUMM (1.2-3.4); ABSOLUTE MONOCYTE COUNT 0.6 /CUMM (0.10-0.60); BASOPHIL % 1.5 % (0.0-2.0); EOSINOPHIL % 4.9 % (0-5); GRANULOCYTE % 61.8 % (42.2-75.2); HEMATOCRIT 36.7 % (37-47); MEAN CORPUSCULAR HGB 29.2 PG (27.0-31.0); MEAN CORPUSCULAR HGB CONC 33.5 G/DL (33.0-37.0); MEAN CORPUSCULAR VOLUME 87.2 FL (81.0-99.0); MEAN PLATELET VOLUME 8.8 FL (7.4-10.4); PLATELET COUNT 208 /CUMM (130-400); RBC DISTRIBUTION WIDTH 13.9 % (11.5-14.5); RED BLOOD CELL CT 4.21 /CUMM (4.20-5.40); WHITE BLOOD CELL COUNT 5.9 /CUMM (4.8-10.8)
[2018-05-09 08:16] LABS: PT 13.4 SEC (9.4-12.5)
[2018-05-09 14:00] VITALS: BP 130/80
[2018-05-09 16:02] LABS: PTT 65 SEC (25-37)
--- NOTE | 2018-05-09 18:59 | PN- Cardiology ---
Subjective Subjective: No complaints. Paroxysmal atrial fibrillation/flutter on telemetry. Objective Physical Exam: Well-developed, well-nourished elderly female in no acute distress. Vital signs: See above. HEENT: Normocephalic, atraumatic, EOMI, moist mucous membranes. Neck: No JVD, no bruits. Lungs: Clear to auscultation bilaterally. Heart: S1, S2 (irregularly, irregular) with no murmur, gallop, or rub. PMI fifth ICS MCL. Abdomen: Soft, nontender, positive bowel sounds. Extremities: No edema. Right arm bandaged. Assessment/Plan Assessment/Plan [id number] w/ hx of HTN, HLD, & prev DVT/PE s/p IVC filter who developed a hematoma on what sounds like combination SQ enoxaparin & warfarin AC who presented to the ED after experiencing a syncopal episode while at a checkout counter while shopping on 05/05/2018 at ~11:30 a.m. & who was discovered to be in AF of which she was unaware. Mrs. Agustin has a [id number] Score of 7 (female gender =1, age greater than 75 =2, HTN =1, thromboembolism =2, aortic atherosclerosis =1) and an unadjusted stroke rate of 11.2% per year. She cannot afford to be on a NOAC, so initiated therapy with warfarin with heparin bridging. INR today 1.23 and agree with giving warfarin 7.5 mg this evening and recheck PTT/INR in a.m. Continue telemetry? Yes
[2018-05-09 22:57] VITALS: BP 132/80
[2018-05-10 04:40] LABS: ABSOLUTE BASOPHIL COUNT 0.1 /CUMM (0.0-0.2); ABSOLUTE EOSINOPHIL COUNT 0.3 /CUMM (0.0-0.7); ABSOLUTE GRANULOCYTE CT 4.1 /CUMM (1.4-6.5); ABSOLUTE LYMPH COUNT 1.2 /CUMM (1.2-3.4); ABSOLUTE MONOCYTE COUNT 0.7 /CUMM (0.10-0.60); BASOPHIL % 1.4 % (0.0-2.0); GRANULOCYTE % 65.1 % (42.2-75.2); HEMATOCRIT 34.8 % (37-47); MEAN CORPUSCULAR HGB 29.3 PG (27.0-31.0); MEAN CORPUSCULAR HGB CONC 33.9 G/DL (33.0-37.0); MEAN CORPUSCULAR VOLUME 86.6 FL (81.0-99.0); MEAN PLATELET VOLUME 8.3 FL (7.4-10.4); PLATELET COUNT 210 /CUMM (130-400); RBC DISTRIBUTION WIDTH 14.1 % (11.5-14.5); RED BLOOD CELL CT 4.03 /CUMM (4.20-5.40); WHITE BLOOD CELL COUNT 6.4 /CUMM (4.8-10.8)
[2018-05-10 04:46] LABS: PT 19.5 SEC (9.4-12.5)
[2018-05-10 04:49] LABS: PTT 77 SEC (25-37)
[2018-05-10 06:17] VITALS: BP 132/80
--- NOTE | 2018-05-10 07:08 | PN- Housestaff ---
Ethan CORTES,Criss 05/10/18 0707: Subjective Follow-up For: Syncopal attack Tele-Events Since Last Visit: Atrial flutter, 70, 0.08, no overnight events Subjective: Patient was seen and examined at bedside, complains of mild puffiness under her eyes, denies any chest pain or lightheadedness, her INR was subtherapeutic today , was dosed Coumadin 7.5 Review of Systems Constitutional: Reports: see HPI. Objective Last 24 Hrs of Vital Signs/I&O Vital Signs Date Time Temp Pulse Resp B/P B/P Pulse O2 O2 Flow FiO2 Mean Ox Delivery Rate 05/10 1400 97.8 86 20 136/80 97 05/10 0828 78 120/72 05/10 0828 78 120/72 05/10 0826 78 120/72 05/10 0800 Room Air 05/10 0617 98.4 71 18 132/80 94 05/09 2257 98.3 68 18 132/80 94 Room Air Intake & Output 05/10 1600 05/10 0800 05/10 0000 Intake Total 888.8 288.8 204.4 Output Total Balance 888.8 288.8 204.4 Intake, IV 168.8 168.8 84.4 Intake, Oral 720 120 120 Patient 144 lb 144 lb Weight Weight Bed scale Measurement Method Physical Exam General Appearance: Alert, Oriented X3, Cooperative, No Acute Distress HEENT: Atraumatic, PERRLA, EOMI, BILATERAL BUFFINESS OF BOTH LOWER EYE LIDS Neck: Supple, No JVD Cardiovascular: Normal S1, Normal S2, No Murmurs Lungs: Clear to Auscultation Abdomen: Normal Bowel Sounds, Soft, No Tenderness Neurological: Normal Gait, Normal Speech, Strength at 5/5 X4 Ext, Normal Tone, Sensation Intact, Cranial Nerves 3-12 NL, Reflexes 2+ Extremities: No Clubbing, No Cyanosis, No Edema Vascular: Normal Pulses Assessment/Plan Assessment: Ms. 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 Patient mostly have physical attack due to dehydration. Her blood work shows BUN/creatinine of 38/1.2 with baseline creatinine unknown however patient denied any kidney disease. Her EKG showed sinus tachycardia, EKG reviewed with eligibility counselor Dr. Tracy and there is no signs for atrial fibrillation. Patient received diltiazem push in ED for heart rate of 1:30 that was symptomatic. On telemetry floor she has pain around 104-105 bpm. Problem list Syncopal attack New onset atrial fibrillation severe pulmonary hypertension Acute kidney injury Plan -Continue environmental monitoring specialist -Increase verapamil to 180 mg daily for rate control -Anticoagulation. Patient reported having severe hematoma in the abdomen 10 years ago when she was on Lovenox injection and was told not to use anticoagulation. a [id number] Score of 7 (female gender =1, age greater than 75 =2, HTN =1, thromboembolism =2, aortic atherosclerosis =1) and an unadjusted stroke rate of 11.2% per year . Continue on IV heparin drip, bridging to Coumadin, INR was subtherapeutic today, the patient was given Coumadin 7.5 today Guaiac test: no stool in the rectal vault -Echocardiogram shows normal ejection fraction 55%, mild to moderate mitral regurg, mild concentric left ventricular hypertrophy, - Need to F/U with her pricing strategist as an outpatient for severe pulmonary hypertension for further investigation- DIscussed with Dr. Oakes -Continue home medication, continue to hold gabapentin -Lidocaine for right leg pain Follow up on cardiology recommendation Code DNR/DNI Diet heart healthy DVT prophylaxis coumadin Problem List: 1. Syncope Pain Ratin Pain Location: n/a Pain Goal: Remain pain free Pain Plan: [facility] Tomorrow's Labs & Rationales: CBC BEP INR Barbara Gutierrez 05/10/18 1132: Attending MD Review Statement Attending Statement Attending MD Statement: examined this patient, discuss w/resident/PA/RELAYS DRAFTSPERSON, agreed w/resident/PA/RELAYS DRAFTSPERSON, discussed with family, reviewed EMR data (avail), discussed with nursing, discussed with case mgmt, reviewed images, amended to note Attending Assessment/Plan: Patinet seen/examined bedside. No new complaints, Had epsiode of afib. Echocardiogram with pulmoanry hypertension. Creatinine level elevated baseline as per previous records. Afib with h/o hematoma in past with sc lovenox injections: Anticoagulation as per cardiology. INR 1.78 today. MONITOR INR tomorrow and if INR>2.0 then plan for discharge. Needs to follow up with [facility] as outpatient. She is receiving warfarin 7.5 mg. ECHO with pulmoanry hypertension hypertension controlled h/o dvt/pe s/p IVC filter placement in past CKD stage 2 Anticipte dsicharge in 24-48 hrs.
[2018-05-10 08:26] VITALS: BP 120/72
--- NOTE | 2018-05-10 12:19 | PN- Cardiology ---
Subjective Subjective: No complaints. On telemetry she is varying between sinus rhythm, atrial fibrillation, and atrial flutter with rates 85-95 bpm. Objective Vital Signs and I&Os Vital Signs Date Time Temp Pulse Resp B/P B/P Pulse O2 O2 Flow FiO2 Mean Ox Delivery Rate 05/10 0828 78 120/72 05/10 0828 78 120/72 05/10 0826 78 120/72 05/10 0800 Room Air 05/10 0617 98.4 71 18 132/80 94 05/09 2257 98.3 68 18 132/80 94 Room Air 05/09 1400 98.0 85 16 130/80 97 Intake & Output 05/10 1600 05/10 0800 05/10 0000 05/09 1600 05/09 0800 05/09 0000 Intake Total 288.8 204.4 360 Output Total Balance 288.8 204.4 360 Intake, IV 168.8 84.4 Intake, Oral 120 120 360 Patient 144 lb 144 lb 141 lb Weight Weight Bed scale Bed scale Measurement Method Physical Exam: Well-developed, well-nourished elderly female in no acute distress. Vital signs: See above. HEENT: Normocephalic, atraumatic, EOMI, moist mucous membranes. Neck: No JVD, no bruits. Lungs: Clear to auscultation bilaterally. Heart: S1, S2 (irregularly, irregular) with no murmur, gallop, or rub. PMI fifth ICS MCL. Abdomen: Soft, nontender, positive bowel sounds. Extremities: No edema. Right arm bandaged. Current Medications: Current Medications Sig/Miracle Start time Last Medication Dose Route Stop Time Status Admin Acetaminophen 650 MG Q6P PRN 05/05 1930 AC PO Amlodipine Besylate 10 MG DAILY 05/06 0900 AC 05/10 PO 0828 Atorvastatin Calcium 10 MG 1700 05/06 1700 AC 05/09 PO 1645 Citalopram 20 MG DAILY 05/06 09 AC 05/10 Hydrobromide PO 0828 Heparin Sodium 25,000 UNIT Q24H 05/06 1200 AC 05/10 (Porcine) IV 0238 Sodium Chloride 500 ML Lidocaine 1 PAT Q24H 05/05 1930 AC 05/09 EXT 1925 Patient Medication 1 ED ONE ONE 05/09 1230 DC Teaching ED 05/09 1231 Potassium Chloride 40 MEQ ONCE ONE 05/10 0645 DC 05/10 PO 05/10 0646 0644 Verapamil HCl 180 MG DAILY 05/07 0900 AC 05/10 PO 0828 Warfarin Sodium 7.5 MG COUMADIN 1700 ONE 05/10 1700 AC PO 05/10 1701 Warfarin Sodium 7.5 MG COUMADIN 1700 ONE 05/09 1700 DC 05/09 PO 05/09 1701 1645 Results Last 48 Hrs of Labs/Mics: Laboratory Tests 05/10/18 0415: PT 19.5 H, INR 1.78 H 05/10/18 0415: Anion Gap 9, Estimated GFR 47 L, BUN/Creatinine Ratio 22.7, APTT 77 H, CBC w Diff NO MAN DIFF REQ, RBC 4.03 L, MCV 86.6, MCH 29.3, MCHC 33.9, RDW 14.1, MPV 8.3, Gran % 65.1, Lymphocytes % 18.1 L, Monocytes % 10.4 H, Eosinophils % 5.0, Basophils % 1.4, Absolute Granulocytes 4.1, Absolute Lymphocytes 1.2, Absolute Monocytes 0.7 H, Absolute Eosinophils 0.3, Absolute Basophils 0.1 05/09/18 1535: APTT 65 H 05/09/18 0625: PT 13.4 H, INR 1.23 H, CBC w Diff NO MAN DIFF REQ, RBC 4.21, MCV 87.2, MCH 29.2, MCHC 33.5, RDW 13.9, MPV 8.8, Gran % 61.8, Lymphocytes % 22.1, Monocytes % 9.7 H, Eosinophils % 4.9, Basophils % 1.5, Absolute Granulocytes 3.6, Absolute Lymphocytes 1.3, Absolute Monocytes 0.6, Absolute Eosinophils 0.3, Absolute Basophils 0.1 05/09/18 0300: APTT 68 H 05/08/18 1757: APTT > 120 *H 05/08/18 1235: APTT 32 Assessment/Plan Assessment/Plan 87-[id number]-o-w-f w/ hx of HTN, HLD, & prev DVT/PE s/p IVC filter who developed a hematoma on what sounds like combination SQ enoxaparin & warfarin AC who presented to the ED after experiencing a syncopal episode while at a checkout counter while shopping on 05/05/2018 at ~11:30 a.m. & who was discovered to be in AF of which she was unaware. Mrs. Agustin has a [id number] Score of 7 (female gender =1, age greater than 75 =2, HTN =1, thromboembolism =2, aortic atherosclerosis =1) and an unadjusted stroke rate of 11.2% per year. She cannot afford to be on a NOAC, so initiated therapy with warfarin with heparin bridging. INR today 1.78 and PTT 77 sec. Would give warfarin 5 mg today. Continue telemetry? Yes
[2018-05-10 14:00] VITALS: BP 136/80
--- NOTE | 2018-05-10 15:12 | Discharge Summary ---
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 Her blood work shows BUN/creatinine of 38/1.2 with baseline creatinine unknown however patient denied any kidney disease. Her EKG showed sinus tachycardia, EKG reviewed with tractor operator helper Dr. Tracy and there is no signs for atrial fibrillation. Patient received diltiazem push in ED for heart rate of 130 that was symptomatic. Chest x-ray: 1. Nonspecific mild bronchovascular prominence could reflect a mild degree of interstitial edema in the correct clinical setting. 2. Mild patchy right basilar opacification, consider atelectasis or other subtle consolidation. 3. Nonacute findings as above. Cervical spine CT: No acute traumatic injury of the head or cervical spine. Age-appropriate generalized parenchymal atrophy of the brain with intracranial atherosclerotic disease and white matter changes most consistent with sequela of chronic microvascular ischemia. Degenerative changes of the cervical spine as detailed above. Head CT: No acute traumatic injury of the head or cervical spine. Age-appropriate generalized parenchymal atrophy of the brain with intracranial atherosclerotic disease and white matter changes most consistent with sequela of chronic microvascular ischemia. Degenerative changes of the cervical spine as detailed above. She was admitted to telemetry for treatment of the following conditions: #Syncopal attack mostly vasovagal due to dehydration Echo: Normal size left ventricle. Mild concentric left ventricular hypertrophy. Normal left ventricular ejection fraction visually estimated at > 55%. Normal right ventricular size and function. Moderate atrial dilatation. Mild to moderate mitral regurgitation. Trace aortic regurgitation. Mild to moderate tricuspid regurgitation. Severe pulmonary hypertension. Mild pulmonic regurgitation. #New onset A. fib: On admission the patient had normal sinus rhythm, on the next [place] [address], she was started on IV heparin drip, was pretreated to p.o. warfarin, she was discharged on p.o. Coumadin 5 mg daily to follow-up with the Coumadin clinic for INR monitoring and Coumadin dosing, verapamil dose was increased to 180 mg daily, she was continued on her home meds , gabapentin was discontinued #Pulmonary hypertension Was discovered in echo We will need outpatient follow-up with her lathe hand for further studies #Acute kidney injury: Most likely was due to dehydration, improved while in the hospital Code DNR/DNI Diet heart healthy DVT prophylaxis Alps. Patient initially refused subcutaneous DVT prophylaxis because of previous history of hematoma, and later she was started on IV heparin drip Allergies: Coded Allergies: NSAIDS (Non-Steroidal Anti-Inflamma (BLEEDING 05/05/18) blueberry (TONGUE AND LIP SWELL; ALL BERRIES EXCEPT STRAWBERRY 05/05/18) raspberry (LIP AND TONGUE SWELL; ALL BERRIES EXCEPT STRAWBERRY 05/05/18) Disposition Summary Disposition Principal Diagnosis: Syncope Additional Diagnosis: New onset A. fib Discharge Disposition: home or self care Discharge Instructions General Discharge Information Code Status: Full Code Patient's Diet: Heart healthy Patient's Activity: As tolerated Follow-Up Instructions/Appts: 1please follow-up with your PCP in 1 week discharge 2please follow-up with your tractor operator helper in 1 week of discharge Medications at Discharge Discharge Medications: Stop taking the following medications: Verapamil HCl (Verapamil HCl) 120 MG TABLET ORAL DAILY Chlorthalidone (Chlorthalidone) 25 MG TABLET ORAL DAILY Gabapentin (Neurontin) 100 MG CAPSULE ORAL TWICE DAILY Continue taking these medications: Atorvastatin Calcium (Lipitor) 10 MG TABLET 1 Tablet ORAL DAILY Comments: Last Taken: 05/11/18 Time: 4:00 PM Amlodipine Besylate (Amlodipine Besylate) 10 MG TABLET 1 Tablet ORAL DAILY Comments: Last Taken: 05/11/18 Time: 9:30 AM Citalopram Hydrobromide (Celexa) 20 MG TABLET 1 Tablet ORAL DAILY Comments: Last Taken: 05/11/18 Time: 9:30 AM Acetaminophen (Acetaminophen) 500 MG TABLET 2 Tablet ORAL as needed for PAIN Comments: NOT GIVEN IN HOSPITAL Start taking the following new medications: Warfarin Sodium (Coumadin) 5 MG TABLET 1 Tablet ORAL DAILY Qty = 30 No Refills Instructions: . Comments: Last Taken: 05/11/18 Time: 4:00 PM Lidocaine (Lidoderm) 5 % ADH..PATCH 1 Patch ON SKIN Q24H as needed for pain Qty = 30 No Refills Instructions: . Comments: Last Taken: 05/10/18 Time: 7:00 PM Verapamil HCl (Verapamil ER) 180 MG TABLET.ER 180 Milligram ORAL DAILY Qty = 60 No Refills Copies To: Temo CORTES,Andre Cesar MD,Gerson Jack Attending MD Review Statement Documenting Attending: Barbara Gutierrez MD Other Findings: Ct seen/examined bedside. No new complaints. INR 2.58. Patient can complete her overlap in evening today and can be discharge with oral coumadin 5 mg and needs to follow up with coumadin clinic after discahrge on Monday. Also needs to follow up with PCP in 1 week and her tractor operator helper in 2-3 weeks of discharge. She understands and verbalises the discharge instructions.
[2018-05-10 16:44] LABS: PTT 78 SEC (25-37)
[2018-05-10 22:29] VITALS: BP 122/80
[2018-05-11 04:03] LABS: PT 28.2 SEC (9.4-12.5)
[2018-05-11 04:06] LABS: PTT 89 SEC (25-37)
[2018-05-11 06:00] VITALS: BP 120/68
--- NOTE | 2018-05-11 07:14 | PN- Housestaff ---
Ethan CORTES,Criss 05/11/18 0714: Subjective Follow-up For: Syncopal attack A. fib Tele-Events Since Last Visit: Atrial flutter, 80, 0.08, no overnight events Subjective: Patient was seen and examined at bedside, she reports no complaints, her INR is therapeutic today Review of Systems Constitutional: Reports: see HPI. Objective Last 24 Hrs of Vital Signs/I&O Vital Signs Date Time Temp Pulse Resp B/P B/P Pulse O2 O2 Flow FiO2 Mean Ox Delivery Rate 05/11 0929 68 120/68 05/11 0929 68 120/68 05/11 0600 97.9 68 16 120/68 97 05/10 2229 98.8 72 18 122/80 93 Room Air 05/10 1400 97.8 86 20 136/80 97 Intake & Output 05/11 1600 05/11 0800 05/11 0000 Intake Total 408.8 648.8 Output Total Balance 408.8 648.8 Intake, IV 168.8 168.8 Intake, Oral 240 480 Number 1 2 Bowel Movements Patient 146 lb Weight Physical Exam General Appearance: Alert, Oriented X3, Cooperative, No Acute Distress HEENT: Atraumatic, PERRLA, EOMI Cardiovascular: Normal S1, Normal S2 Lungs: Clear to Auscultation Abdomen: Normal Bowel Sounds, Soft, No Tenderness Neurological: Normal Gait, Normal Speech, Strength at 5/5 X4 Ext, Normal Tone, Sensation Intact, Cranial Nerves 3-12 NL Extremities: No Clubbing, No Cyanosis, No Edema Assessment/Plan Assessment: Ms. Agustin is 87 year old female with past medical history significant for hypertension, hyperlipidemia, chronic leg pain, DVT and PE 2007 status post IVC filter with no anticoagulation, hematoma developed with subcutaneous DVT prophylaxis in the past who presented to ED after a syncopal attack. Patient mostly have physical attack due to dehydration. Her blood work shows BUN/creatinine of 38/1.2 with baseline creatinine unknown however patient denied any kidney disease. Her EKG showed sinus tachycardia, EKG reviewed with child care center assistant director Dr. Tracy and there is no signs for atrial fibrillation. Patient received diltiazem push in ED for heart rate of 1:30 that was symptomatic. On telemetry floor she has pain around 104-105 bpm. Problem list Syncopal attack New onset atrial fibrillation severe pulmonary hypertension Acute kidney injury Plan -Continue alarm security or surveillance monitor -Increase verapamil to 180 mg daily for rate control -Anticoagulation. Patient reported having severe hematoma in the abdomen 10 years ago when she was on Lovenox injection and was told not to use anticoagulation. a [id number] Score of 7 (female gender =1, age greater than 75 =2, HTN =1, thromboembolism =2, aortic atherosclerosis =1) and an unadjusted stroke rate of 11.2% per year . Continue on IV heparin drip, bridging to Coumadin, INR was therapeutic today, Guaiac test: no stool in the rectal vault -Echocardiogram shows normal ejection fraction 55%, mild to moderate mitral regurg, mild concentric left ventricular hypertrophy, - Need to F/U with her elastic yarn twister helper as an outpatient for severe pulmonary hypertension for further investigation- DIscussed with Dr. Oakes -Continue home medication, continue to hold gabapentin -Lidocaine for right leg pain Follow up on cardiology recommendation Patient will be discharged home today to follow-up with her child care center assistant director and the Coumadin clinic Code DNR/DNI Diet heart healthy DVT prophylaxis coumadin Problem List: 1. Atrial fibrillation 2. Syncope Pain Ratin Pain Location: N/A Pain Goal: Remain pain free Pain Plan: [facility] Tomorrow's Labs & Rationales: CBC BEP Barbara Gutierrez 05/11/18 1216: Attending MD Review Statement Attending Statement Attending MD Statement: examined this patient, discuss w/resident/PA/MULTIPLE SPINDLE SCREW MACHINE OPERATOR, agreed w/resident/PA/MULTIPLE SPINDLE SCREW MACHINE OPERATOR, discussed with family, reviewed EMR data (avail), discussed with nursing, discussed with case mgmt, reviewed images, amended to note Attending Assessment/Plan: Rachelnet seen/examined bedside. No new complaints. INR 2.58. Patient can complete her overlap in evening today and can be discharge with oral coumadin 5 mg and needs to follow up with coumadin clinic after discahrge on Monday. Also needs to follow up with PCP in 1 week and her child care center assistant director in 2-3 weeks of discharge. She understands and verbalises the discharge instructions.
[2018-05-11] MEDS ORDERED: COUMADIN7.5 M1 PO (08:04)
[2018-05-11 09:29] VITALS: BP 120/68
[2018-05-11] MEDS ORDERED: COUMADIN5 M2 PO ×2 (10:00)
[2018-05-11] MEDS ORDERED: LIDODERM1 EACH EXT (10:00)
[2018-05-11] MEDS ORDERED: VERAPAMIL ER180 M1 PO (15:41)
== END 2018-05-11 16:40 | DRG 641 ==
LOC: ERH 13:24 → ERHI 16:59 → 1NO 16:59 → ENRESERV 17:44 → ENTRNSPT 18:29 → EDTRNSPTSTS 18:33 → EDTRNSPT 18:33 → 1NO 18:50 → CMPTRNSPT 19:11 → 1NO 05-06 08:50 → ENPENDDIS 05-11 14:15 → 1NO 05-11 16:40 → ENTRNSPT 05-11 16:47 → EDTRNSPTSTS 05-11 16:49 → EDTRNSPT 05-11 16:49 → CMPTRNSPT 05-11 17:08
PROVIDERS: Internal Medicine; Physician Assistant; Radiology Vascular & Interventional Radiology; Student in an Organized Health Care Education/Training Program
DX: E86.0 Dehydration (principal); N17.9 Acute kidney failure, unspecified; I48.92 Unspecified atrial flutter; R55 Syncope and collapse; I10 Essential (primary) hypertension; E78.5 Hyperlipidemia, unspecified; S50.811A Abrasion of right forearm, initial encounter; W19.XXXA Unspecified fall, initial encounter; Z86.718 Personal history of other venous thrombosis and embolism; Z86.711 Personal history of pulmonary embolism; I48.91 Unspecified atrial fibrillation; I27.20 Pulmonary hypertension, unspecified
CPT/HCPCS: 1NSP; 36415; 36592; 71046; 81003; 82436; 90714; 93005; 93010; 93306; 96374; J1644